=== PATIENT | male | born 1955 | race Caucasian/White ===

== ENCOUNTER 2023-02-20 11:41 | Emergency (ER) | payer MEDICARE, OTHER, SELFPAY ==
[2023-02-20 11:55] VITALS: BP 120/75; PULSE 60; RESP 14; TEMP 36.6; O2SAT 97; BMI 24.4
--- NOTE | 2023-02-20 12:48 | ED.GENADULT ---
HPI - General Adult General Chief complaint: Cough Stated complaint: Covid+, cough, slight chest pain Time Seen by Provider: 02/20/23 12:03 History of Present Illness HPI narrative: This 67-year-old male called in to clinic and was told to come here. He is reporting some cough and mild congestion. He was positive for COVID at the end of last month and did finish a course of Paxil of it. His symptoms completely resolved until a couple days ago when he began to have cough and some nasal congestion. He does not report any fevers or shortness of breath. He arrives here with normal vital signs. Related Data Home Medications Medication Instructions Recorded Confirmed fluticasone propionate 50 1 spray intranasal DAILY 02/20/23 02/20/23 mcg/actuation nasal spray,suspension levothyroxine 88 mcg tablet 88 mcg PO DAILY 02/20/23 02/20/23 Previous Rx's Medication Instructions Recorded methylprednisolone 4 mg tablets in See Rx Instructions PO .COMPLEX 02/20/23 a dose pack (Sr.Pago (Bakari)) #21 ea Allergies Allergy/AdvReac Type Severity Reaction Status Date / Time atorvastatin [From Lipitor] Allergy Unknown Weakness Verified 02/20/23 11:54 Review of Systems Status of ROS: Reports: 10 or more systems reviewed and unremarkable except as noted in History and below Narrative: Constitutional: No fevers, no weight gain or loss. Eyes: No discharge. No vision changes. HENT: No sore throat, no ear pain. Some nasal congestion. Cardiovascular: No chest pain, no palpitations. Respiratory: No shortness of breath, no wheezes. Nonproductive cough. Gastrointestinal: No abdominal pain, no vomiting, no diarrhea. Genitourinary: No dysuria, no hematuria. Musculoskeletal: Normal range of motion. Skin: No rashes, no pruritis. Neurological: No dizziness, weakness, sensory change, speech change. Endo/Heme/Allergies: No bruising or bleeding. No polydipsia. Pysch: no suicidality, no anxiety, no insomnia. All other systems reviewed and are negative. Exam Narrative: Exam Narrative: Constitutional: Well-developed, well-nourished, no acute distress. HEENT: Normocephalic, atraumatic. Neck: Normal range of motion. Nontender. Supple. Heart: Regular. No murmurs. Normal rate. Intact distal pulses. Lungs: Clear to auscultation. No chest discomfort. No wheezes, rhonchi, or rales. Abdomen: Normal bowel sounds. Nontender. No rebound tenderness. Genitalia: Deferred. Back: No midline tenderness. Normal range of motion. Extremities: Normal range of motion. No injury. Skin: Intact. No rash. Warm. No erythema or pallor. Neurologic: No altered sensation. No weakness. Alert and oriented. Psychiatric: No suicidality. No anxiety or depression. No insomnia. Nursing notes and vitals signs are reviewed. Const: Vital Signs, click to edit/add: Vital Signs - 24 hr 02/20/23 11:55 Temperature 97.9 F Pulse Rate [Pulse Oximeter] 60 Respiratory Rate 14 Blood Pressure [Le ft Upper Arm] 120/75 Pulse Oximetry 97 Oxygen Delivery Me thod Room Air Course Vital Signs Vital signs: Initial Vital Signs Temperature 97.9 F 02/20/23 11:55 Temperature Source Temporal Artery Scan 02/20/23 11:55 Pulse Rate 60 02/20/23 11:55 Pulse Rhythm Regular 02/20/23 11:55 Respiratory Rate 14 02/20/23 11:55 Blood Pressure 120/75 02/20/23 11:55 Blood Pressure Mean 90 02/20/23 11:55 Blood Pressure Position Sitting 02/20/23 11:55 Pulse Oximetry 97 02/20/23 11:55 Oxygen Delivery Method Room Air 02/20/23 11:55 Vital Signs Temperature 97.9 F 02/20/23 11:55 Pulse Rate 60 02/20/23 11:55 Respiratory Rate 14 02/20/23 11:55 Blood Pressure 120/75 02/20/23 11:55 Pulse Oximetry 97 02/20/23 11:55 Oxygen Delivery Method Room Air 02/20/23 11:55 Temperature 97.9 F 02/20/23 11:55 Pulse Rate 60 02/20/23 11:55 Respiratory Rate 14 02/20/23 11:55 Blood Pressure 120/75 02/20/23 11:55 Pulse Oximetry 97 02/20/23 11:55 Oxygen Delivery Method Room Air 02/20/23 11:55 Medical Decision Making MDM Narrative Medical decision making narrative: This patient comes in with nonproductive cough and mild nasal congestion. He arrives with normal vital signs and does not have significant complaints of bothersome symptoms. He comes in because he was instructed by the clinic to come here for evaluation. On exam his lungs sound clear. He is not using any accessory muscles for breathing and has normal oximetry and heart rate. I did discuss role of x-ray but this was declined in a process of shared decision making. The patient does have a positive COVID test once again. He did receive a prescription for Medrol Dosepak and I encouraged him to use [id number]-[id number] medicines also as needed and directed. Discharge Plan Discharge Clinical Impression: COVID-19 Patient Disposition: Home, Self-Care Condition: Stable Additional Instructions: Take medication as prescribed. Use [id number] medicines also as needed and directed. Follow up with MD return if worsening. Prescriptions: New methylprednisolone [Medrol (Bakari)] 4 mg tablets,dose pack See Rx Instructions .ROUTE .COMPLEX Qty: 21 0RF Rx Instructions: orally per package directions No Action levothyroxine 88 mcg tablet 88 mcg PO DAILY fluticasone propionate 50 mcg/actuation spray,suspension 1 spray INTRANASAL DAILY Follow Up/Referrals: Oli Zepeda MD [Primary Care Provider] - Stand Alone Forms: [employer] Info Instructions
[2023-02-20 13:14] VITALS: BP 120/75; PULSE 60; RESP 14; TEMP 36.6
== END 2023-02-20 13:04 | disposition home or self-care (01) ==
PROVIDERS: Emergency Provider Emergency Medicine Emergency Medical Services; PCP Surgery
DX: U07.1 COVID-19 (principal)
CPT/HCPCS: 99283; 99284

== ENCOUNTER 2024-08-26 17:13 | Emergency (ER) | payer MEDICARE, OTHER, SELFPAY ==
--- OUTSIDE RECORDS SUMMARY | 2024-08-26 17:15 | XMS_ITS | Clinical Summary ---
Author Organization [facility] Address [address] [place] [id number] Care Team Providers Care Video Systems Engineer Name Role Phone Oli Zepeda MD Primary Care Provider [phone] Allergies Active Allergy Reactions Criticality Noted Date Comments Rosuvastatin Muscle Weakness 12/10/2020 Medications cholecalciferol , vitamin D3, (VITAMIN D3) 100 mcg (4,000 unit) cap 02/28/2020 Active [id number] -Fish Oil 1,000 mg (120 mg-180 mg) cap Take 2 Capsules (2,000 mg) by mouth. 0 12/10/2020 Active fluticasone (50 mcg per actuation) nasal solution (FLONASE)Indica tions:Chronic cough INHALE 1 SPRAY INTO BOTH NOSTRILS ONCE DAILY 48 g 2 08/30/2023 Active levothyroxine (SYNTHROID) 88 mcg tabletIndicatio ns:Hypothyroidi sm (acquired) Take 1 Tablet (88 mcg) by mouth once daily. 90 Tablet 3 05/01/2024 Active Active Problems Problem Noted Date Diagnosed Date Hypothyroidism (acquired) 02/07/2023 Encounters Date Type Department Care Team Description 08/26/2024 Nurse Triage [facility] [address] [place] [address] Oli Zepeda MD Dog Bite 08/26/2024 Nurse Triage [facility] [address] [place] [address] Oli Zepeda MD from Last 3 Months Immunizations Immunization Administration Dates Next Due COVID-19 VACCINE SPIKEVAX (M ODERNA 50MCG/0.5ML) 12YO+ PFS 07/27/2023 COVID-19 vaccine (Moderna 10 0mcg/0.5mL) PF, MDV 03/11/2021,05/28/2020 Influenza Virus, Unspecified 03/18/2008 Influenza, High-dose Inactivated 02/19/2024 Influenza, High-dose Quadriv alent Inactivated 02/07/2021 Influenza, IIV3 (Age 6-35 mos) 03/01/2015 Influenza, IIV3 (Age >=3 years) 02/03/2014 Influenza, IIV4 02/25/2019,02/26/2018,02/21/2016 Influenza, Inactivated AIIV4 (Age 65+ Years) Preserv Free 03/12/2023,03/07/2022 Influenza, Inactivated IIV3 (Age 65+ Years) Preserv Free 01/22/2020 Influenza,CCIIV4 PRESERV FREE 02/12/2017 Pneumococcal Poly,23-Valent (Pneumovax) 12/11/19 21 Pneumococcal conj 13-Valent (Prevnar 13) 019 Tdap 03/03/2019 Tuberculin (PPD) 06/28/2012,06/10/2012 Zoster (Shingrix-RZV, recombinant) 09/16/2018, Zoster (Zostavax-ZVL, live) 05/01/2014 Family History Medical History Relation Name Comments Cancer Father Unknown primary Heart attack Maternal Grandfather Cancer-breast Mother Heart attack Paternal Grandfather Diabetes Paternal Grandmother Relation Name Status Comments Father Maternal Grandfather Mother Paternal Grandfather Paternal Grandmother Social History Tobacco Use Types Packs/Day Years Used Date Smoking Tobacco: Never Smokeless Tobacco: Never Tobacco Cessation:Counseling Given: Yes Alcohol Use Standard Drinks/Week Comments Not Currently 0 (1 standard drink = 0.6 oz pur e alcohol) PHQ-2 Answer Date Recorded PHQ-2 TOTAL SCORE 0 05/01/2024 Social Connections Answer Date Recorded Do you often feel lonely or isolated from those around you? 0 04/26/2024 Financial Resource Strain Answer Date R ecorded Difficulty of Paying Living Expenses 3 04/26/2024 Difficulty of Paying Living Expenses Not on file 04/26/2024 Food Insecurity Answer Date Recorded Do you worry your food will run out before you are able to buy more? 1 04/26/2024 Transportation Needs Answer Date Record ed Does lack of transportation keep you from medica l appointments? 1 04/26/2024 Does lack of transportation keep you from work, meetings or getting things that you need? 1 04/26/2024 Housing Stability Answer Date Recorded What is your housing situation today? 1 04/26/2024 Utilities Answer Date Recorded Do you have trouble paying f or utilities (for example, heat, electricity, water, phone)? 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 Not on file Not on file Obstetrics History Last Filed Vital Signs Vital Sign Reading Time Taken Comments Blood Pressure 143/90 05/01/2024 11:14 AM PSYCHIATRIC TECHNICIAN Pulse 63 05/01/2024 11:14 AM PSYCHIATRIC TECHNICIAN Temperature 36.4 C (97.6 F) 03/28/2022 9:23 AM PSYCHIATRIC TECHNICIAN Respiratory Rate 20 12/20/2020 2:59 PM CDT Oxygen Saturation 100% 05/01/2024 11:14 AM PSYCHIATRIC TECHNICIAN Inhaled Oxygen Concentration - - Weight 79.5 kg (175 lb 5 oz) 05/01/2024 11:14 AM PSYCHIATRIC TECHNICIAN Height 177 cm (5' 9.69) 05/01/2024 11:14 AM PSYCHIATRIC TECHNICIAN Body Mass Index 25.38 05/01/2024 11:14 AM PSYCHIATRIC TECHNICIAN Plan of Treatment Health Maintenance Due Date Last Done Comments COVID-19 vaccine series ( season) 2024 02/13/2024, 07/27/2023, 01/28/2022, Additional history exists BMI (ht and wt on same day) for age 18+ 05/01/2025 05/01/2024, 04/10/2023, 03/28/2022, Additional history exists Depression screening for age 12+ 05/01/2025 05/01/2024, 04/10/2023, 03/28/2022, Additional history exists Medicare Wellness for age 65+ 05/02/2025, 04/10/2023, 03/28/2022, Additional history exists Fecal testing sDNA-FIT ([address] guard) for age 45-75 05/03/2027 05/03/2024, 03/08/2021, 03/08/2021 RSV vaccine for adults or (1 - 1-dose 75+ series) 2028 Tetanus booster 03/03/2029 03/03/2019 Lipids for age 45-75 05/01/2029 05/01/2024, 04/10/2023, 03/28/2022, Additional history exists Zoster (shingles) series for age 50+ Completed 09/16/2018, 06/24/2018, 05/01/2014 Tdap Completed 03/03/2019 Pneumococcal series for age 50+ Completed , 03/03/2019 Hepatitis C screening for ag e 18-79 Completed 01/07/2021, 02/27/2020 Influenza Vaccine Completed 02/19/2024, , 03/07/2022, Additional history exists Procedures Procedure Name Priority Date/Time Associated Diagnosis Comments SDNA-FIT EXTERNAL (COLOGUARD) Routine 05/03/2024 1:15 PM PSYCHIATRIC TECHNICIAN Screening for colorectal cancer LIPID PANEL Routine 05/01/2024 11:53 AM PSYCHIATRIC TECHNICIAN Hyperlipidemia, unspecified hyperlipidemia type ANTI HCV Routine 01/07/2021 8:11 AM CDT Elevated liver enzymes from Last 3 Months or Most Recently Relevant to Health Maintenance Results * SDNA-FIT EXTERNAL (COLOGUARD) [[id number]] (05/03/2024 1:15 PM PSYCHIATRIC TECHNICIAN) NONINV COLON CA DNA+OCC BLD SCRN STL-IMP Negative Negative 05/10/2024 8:54 AM PSYCHIATRIC TECHNICIAN [facility] (CLIA #:[id number]) Comment: NEGATIVE TEST RESULT. A negative Cologuard result indicates a low likelihood that a colorectal cancer (CRC) or advanced adenoma (adenomatous polyps with more advanced pre-malignant features) is present. The chance that a person with a negative Cologuard test has a colorectal cancer is less than 1 in 1500 (negative predictive value >99.9%) or has an advanced adenoma is less than 5.3% (negative predictive value 94.7%). These data are based on a prospective cross-sectional study of 10,000 individuals at average risk for colorectal cancer who were screened with both Cologuard and colonoscopy. (Itzel Irving al, N Engl J Med 2014;370(14):9799-1141) The normal value (reference range) for this assay is negative. COLOGUARD RE-SCREENING RECOMMENDATION: Periodic colorectal cancer screening is an important part of preventive healthcare for asymptomatic individuals at average risk for colorectal cancer. Following a negative Cologuard result, the [place] Cancer Society and U.S. Multi-Society Task Force screening guidelines recommend a Cologuard re-screening interval of 3 years. References: [employer] Cancer Society Guideline for Colorectal Cancer Screening: https://www.cancer.org/cancer/cydzj-sgekts-hzhvla/upycqpodc-swwxrhaay-iyukssr/ac s-rec ommendations.html.; James WAGGONER, Daron AMAYA, Bull GilesK, Colorectal Cancer Screening: Recommendations for Physicians and Patients from the U.S. Multi-Society Task Force on Colorectal Cancer Screening , Am J Gastroenterology 2017; 112:1758-3425. TEST DESCRIPTION: Composite algorithmic analysis of stool DNA-biomarkers with hemoglobin immunoassay. Quantitative values of individual biomarkers are not reportable and are not associated with individual biomarker result reference ranges. Cologuard is intended for colorectal cancer screening of adults of either sex, 45 years or older, who are at average-risk for colorectal cancer (CRC). Cologuard has been approved for use by the U.S. FDA. The performance of Cologuard was established in a cross sectional study of average-risk adults aged 50-84. Cologuard performance in patients ages 45 to 49 years was estimated by sub-group analysis of near-age groups. Colonoscopies performed for a positive result may find as the most clinically significant lesion: colorectal cancer [4.0%], advanced adenoma (including sessile serrated polyps greater than or equal to 1cm diameter) [20%] or non- advanced adenoma [31%]; or no colorectal neoplasia [45%]. These estimates are derived from a prospective cross-sectional screening study of 10,000 individuals at average risk for colorectal cancer who were screened with both Cologuard and colonoscopy. (Itzel Simms et al, N Engl J Med 2014;370(14):8954-5133.) Cologuard may produce a false negative or false positive result (no colorectal cancer or precancerous polyp present at colonoscopy follow up). A negative Cologuard test result does not guarantee the absence of CRC or advanced adenoma (pre-cancer). The current Cologuard screening interval is every 3 years. (Japanese Cancer Society and U.S. Multi-Society Task Force). Cologuard performance data in a 10,000 patient pivotal study using colonoscopy as the reference method can be accessed at the following location: www.[employer]/results. Additional description of the Cologuard test process, warnings and precautions can be found at www.[employer].Retrace. Stool specimen (specimen) (Rectum) 05/03/2024 1:15 PM PSYCHIATRIC TECHNICIAN 05/06/2024 8:54 AM PSYCHIATRIC TECHNICIAN us Oli Zepeda MD URINE Final Resu lt [facility] (CLIA #:[id number]) [address] [place] [address], * (ABNORMAL) LIPID PANEL (05/01/2024 11:53 AM PSYCHIATRIC TECHNICIAN) CHOLESTEROL, TOTAL 184 <200 mg/dL [facility] HDL CHOLESTEROL 54 > OR = 40 mg/dL [facility] TRIGLYCERIDES 80 <150 mg/dL [facility] LDL-CHOLESTEROL 113(H) mg/dL (calc) [facility] Comment: Reference range: <100 Desirable range <100 mg/dL for primary prevention; <70 mg/dL for patients with CHD or diabetic patients with > or = 2 CHD risk factors. LDL-C is now calculated using the Michelle calculation, which is a validated novel method providing better accuracy than the Friedewald equation in the estimation of LDL-C. Kane FARLEY et al. ARJUN. 2013;310(19): 9008-7072 (http://education.[employer].Retrace/faq/LVG923) CHOL/HDLC RATIO 3.4 <5.0 (calc) [facility] NON HDL CHOLESTEROL 130(H) <130 mg/dL (calc) [facility] Comment: For patients with diabetes plus 1 major ASCVD risk factor, treating to a non-HDL-C goal of <100 mg/dL (LDL-C of <70 mg/dL) is considered a therapeutic option. Blood BLOOD SPECIMEN / Unknown 05/01/2024 11:53 AM PSYCHIATRIC TECHNICIAN 05/01/2024 11:54 AM PSYCHIATRIC TECHNICIAN lOi Zepeda MD CHEMISTRY Final Resu lt Performing Organization Address [facility] Co de Phone Number [employer] [facility] [address] [place] [address], [address]cast.[email or web address] [address] * ANTI HCV (01/07/2021 8:11 AM CDT) HEPATITIS C ANTIBODY Non-React glenn Non-React glenn 01/07/2021 5:40 PM CDT [facility] Comment:Antibodies to HCV no t detected; does not exclude the possibility of exposure to HCV. Blood BLOOD SPECIMEN / Unknown Venipuncture / Unknown 01/07/2021 8:11 AM CDT 01/07/2021 8:11 AM CDT Oli Zepeda MD SEND OUTS [facility] [address] [place] [address], [place] from Last 3 Months or Most Recently Relevant to Health Maintenance Insurance [employer] [place] ONLY Advance Directives Documents on File Type Date Recorded Patient Non Profit Job Titles Expl anation Healthcare Directive 01/08/2017 017 Care Teams Video Systems Engineer Relationship Specialty Start Date End Date Oli Zepeda MD [address] [place] [address] PCP - General Family Practice 03/03/19
[2024-08-26 17:21] VITALS: BP 158/91; PULSE 86; RESP 16; TEMP 36.3; O2SAT 98; BMI 24.2
--- NOTE | 2024-08-26 17:21 | ED_ITS ---
HPI - Animal Bite General Time Seen by Provider: 17:21 Date Seen: 08/26/24 Chief Complaint: Animal Bite Stated Complaint: dog bite R arm Time Seen by Provider: 08/26/24 17:20 Source: patient Mode of arrival: ambulatory Limitations: no limitations History of Present Illness HPI narrative: 68-year-old male who presents today after a dog bite. Patient was out and a known dog bit his arm. He had a coat on along with three shirts and noted an abrasion on his right forearm so came to the emergency department. Tetanus is up-to-date. Related Data Home Medications ?Medication ?Instructions ?Recorded ?Confirmed fluticasone propionate 50 1 spray intranasal DAILY 02/20/23 08/26/24 mcg/actuation nasal spray,suspension levothyroxine 88 mcg tablet 88 mcg PO DAILY 02/20/23 08/26/24 Allergies Allergy/AdvReac Type Severity Reaction Status Date / Time atorvastatin (From Lipitor) Allergy Unknown Weakness Verified 08/26/24 17:19 PFSH PFSH Social History Smoking Status: Never smoker Non-prescribed substance use: denies use Exam Narrative: Exam Narrative: General: well nourished , NAD Head: Atraumatic and normocephalic ENT: External ears and external nose are normal Eyes: Conjunctiva clear, pupils are equal reactive, external ocular motions are intact Neck: Full spontaneous range of motion of the neck Lungs: No respiratory distress Musculoskeletal: No tenderness or deformity Neurologic: No gross focal neurologic deficits Skin: Right extensor forearm 1 cm superficial skin tear /abrasion. I did examine patient's coat and overlying sugars, there are no puncture wounds or damage to any of these layers Psych: Mood and affect are appropriate Const: Vital Signs, click to edit/add: Vital Signs - 24 hr 08/26/24 17:21 Temperature 97.3 F L Pulse Rate [Pulse Oximeter] 86 Respiratory Rate 16 Blood Pressure [Ri ght Upper Arm] 158/91 H Pulse Oximetry 98 Oxygen Delivery Me thod Room Air Course Course ED Course: Patient seen and examined, presents today with right forearm injury after dog bite. The dog bite was through multiple layers of clothing, none of which demonstrate any evidence of damage. The appearance of this is of a skin tear or avulsion, not of a puncture wound. I do not suspect that the dog's tooth penetrated through the layers of clothing, rather this appears to be a superficial avulsion. We discussed rabies series which at this point I do not think is indicated. Additionally, no antibiotics indicated. We discussed wound care in stable for discharge. Vital Signs Vital signs: Initial Vital Signs Temperature 97.3 F L 08/26/24 17:21 Temperature Source Temporal Artery Scan 08/26/24 17:21 Pulse Rate 86 08/26/24 17:21 Respiratory Rate 16 08/26/24 17:21 Blood Pressure 158/91 H 08/26/24 17:21 Blood Pressure Mean 113 H 08/26/24 17:21 Pulse Oximetry 98 08/26/24 17:21 Oxygen Delivery Method Room Air 08/26/24 17:21 Vital Signs Temperature 97.3 F L 08/26/24 17:21 Pulse Rate 86 08/26/24 17:21 Respiratory Rate 16 08/26/24 17:21 Blood Pressure 158/91 H 08/26/24 17:21 Pulse Oximetry 98 08/26/24 17:21 Oxygen Delivery Method Room Air 08/26/24 17:21 Temperature 97.3 F L 08/26/24 17:21 Pulse Rate 86 08/26/24 17:21 Respiratory Rate 16 08/26/24 17:21 Blood Pressure 158/91 H 08/26/24 17:21 Pulse Oximetry 98 08/26/24 17:21 Oxygen Delivery Method Room Air 08/26/24 17:21 Discharge Plan Discharge Clinical Impression: Skin tear Patient Disposition: Home, Self-Care Condition: Stable Additional Instructions: Wash the area gently daily with soap and water, apply dressing for comfort. You may apply antibiotic ointment daily as well. Apply cool packs for pain or swelling Activity Level: No Restrictions Discharge Diet: Regular Prescriptions: No Action levothyroxine 88 mcg tablet 88 mcg PO DAILY fluticasone propionate 50 mcg/actuation spray,suspension 1 spray INTRANASAL DAILY Follow Up/Referrals: Oli Zepeda MD [Primary Care Provider] - Stand Alone Forms: [employer] Info Instructions
--- OUTSIDE RECORDS SUMMARY | 2024-08-26 17:49 | XMS_ITS | Clinical Summary ---
Author Organization [facility] Address [address] [place] [id number] Care Team Providers Care Industrial Workers Name Role Phone Oli Zepeda MD Primary Care Provider [phone] Allergies Active Allergy Reactions Criticality Noted Date Comments Rosuvastatin Muscle Weakness 12/10/2020 Medications cholecalciferol , vitamin D3, (VITAMIN D3) 100 mcg (4,000 unit) cap 02/28/2020 Active [id number] -Fish Oil 1,000 mg (120 mg-180 mg) [...] Department Care Team Description 08/26/2024 Nurse Triage [facility] [address] [place] [address] Oli Zepeda MD Dog Bite 08/26/2024 Nurse Triage [facility] [address] [place] [address] Oli Zepeda MD from Last 3 Months [...] PM CDT Legal Sex Male 6:06 AM [employer] DEVEL[employer] Gender Identity Male 02/26/2020 7:56 PM CDT Sexual Orientation Straight 02/26/2020 7: 56 PM CDT 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 Not on file Not on file Obstetrics History Last Filed Vital Signs Vital Sign Reading Time Taken Comments Blood Pressure 143/90 05/01/2024 11:14 AM [employer]EL[employer] Pulse 63 05/01/2024 11:14 AM [employer] Temperature 36.4 C (97.6 F) 03/28/2022 9:23 AM [employer] DEVELOPER Respiratory Rate 20 12/20/2020 2:59 PM CDT Oxygen Saturation 100% 05/01/2024 11:14 AM [employer]ELOPER Inhaled Oxygen Concentration - - Weight 79.5 kg (175 lb 5 oz) 05/01/2024 11:14 AM [employer]EL[employer] Height 177 cm (5' 9.69) 05/01/2024 11:14 AM [employer]EL[employer] Body Mass Index 25.38 05/01/2024 11:14 AM [employer] DEVELOPER Plan of Treatment Health Maintenance Due Date [...] 03/28/2022, Additional history exists Fecal testing sDNA-FIT ([place] guard) for age 45-75 05/03/2027 05/03/2024, 03/08/2021, [...] SDNA-FIT EXTERNAL (COLOGUARD) Routine 05/03/2024 1:15 PM [employer] DEVEL[employer] Screening for colorectal cancer LIPID PANEL Routine 05/01/2024 11:53 AM [employer] DEVELOPER Hyperlipidemia, unspecified hyperlipidemia type ANTI HCV Routine 01/07/2021 8:11 AM CDT Elevated liver enzymes from Last 3 Months or Most Recently Relevant to Health Maintenance Results * SDNA-FIT EXTERNAL (COLOGUARD) [[id number]] (05/03/2024 1:15 PM [employer] DEVELOPER) NONINV COLON CA DNA+OCC BLD SCRN STL-IMP Negative Negative 05/10/2024 8:54 AM [employer] NET DEVELOPER [facility] (CLIA #:[id number]) Comment: NEGATIVE TEST RESULT. A negative Cologuard [...] (Itzel Irving al, N Engl J Med 2014;370(14):3508-6577) The normal value (reference range) for this assay is negative. COLOGUARD RE-SCREENING RECOMMENDATION: Periodic colorectal cancer screening is an important part of preventive healthcare for asymptomatic individuals at average risk for colorectal cancer. Following a negative Cologuard result, the [place] [employer] Society and U.S. Multi-Society Task Force screening guidelines recommend a Cologuard re-screening interval of 3 years. References: [place] [employer] Guideline for Colorectal Cancer Screening: https://www.cancer.org/cancer/ryvuk-hqvnxr-xrgibz/vomgbbpuw-zkxgqayqt-decattn/ac s-rec ommendations.html.; James WAGGONER, Daron AMAYA, Bull GilesK, Colorectal Cancer Screening: Recommendations for Physicians and Patients from the U.S. Multi-Society Task Force on Colorectal Cancer Screening , Am J Gastroenterology 2017; 112:6018-9624. TEST DESCRIPTION: Composite algorithmic analysis of stool [...] Simms et al, N Engl J Med 2014;370(14):6594-5933.) Cologuard may produce a false negative or false positive result (no colorectal cancer or precancerous polyp present at colonoscopy follow up). A negative Cologuard test result does not guarantee the absence of CRC or advanced adenoma (pre-cancer). The current Cologuard screening interval is every 3 years. ([place] [employer] Society and U.S. Multi-Society Task Force). Cologuard performance data in a 10,000 patient pivotal study using colonoscopy as the reference method can be accessed at the following location: www.[employer]/results. Additional description of the Cologuard test process, warnings and precautions can be found at www.[employer]. Stool specimen (specimen) (Rectum) 05/03/2024 1:15 PM ASP NET DEVELOPER 05/06/2024 8:54 AM ASP NET DEVELOPER us Oli Zepeda MD URINE Final Resu lt [facility] (CLIA #:[id number]) [address] [place] [address], * (ABNORMAL) LIPID PANEL (05/01/2024 11:53 AM [employer] NET DEVELOPER) CHOLESTEROL, TOTAL 184 <200 mg/dL [facility] [...] LDL-C. Kane FARLEY et al. ARJUN. 2013;310(19): 7456-5785 (http://education.[employer]/faq/QGT174) CHOL/HDLC RATIO 3.4 <5.0 (calc) [facility] Dex NON HDL CHOLESTEROL 130(H) <130 mg/dL (calc) [facility] Comment: For patients with diabetes plus 1 major ASCVD risk factor, treating to a non-HDL-C goal of <100 mg/dL (LDL-C of <70 mg/dL) is considered a therapeutic option. Blood BLOOD SPECIMEN / Unknown 05/01/2024 11:53 AM [employer] NET DEVELOPER 05/01/2024 11:54 AM [employer] NET DEVELOPER Oli Zepeda MD CHEMISTRY Final Resu lt Performing Organization Address [facility] Co de Phone Number [employer] [facility] [address] [place] [address], [employer] [address] * ANTI HCV (01/07/2021 8:11 AM CDT) HEPATITIS C ANTIBODY Non-React glenn Non-React glenn 01/07/2021 5:40 PM CDT [facility] Comment:Antibodies to HCV no t detected; does not exclude the possibility of exposure to HCV. Blood BLOOD SPECIMEN / Unknown Venipuncture / Unknown 01/07/2021 8:11 AM CDT 01/07/2021 8:11 AM CDT Oli Zepeda MD SEND OUTS Final Resu lt [facility] [address] [place] [address], [place] from Last 3 Months or Most Recently Relevant to Health Maintenance Insurance [employer] [place] ONLY Advance Directives Documents on File Type Date Recorded Patient Health And Human Performance Professor Expl anation Healthcare Directive 01/08/2017 017 Care Teams Industrial Workers Relationship Specialty Start Date End Date Oli Zepeda MD [address] [place] [address] PCP - General Family Practice 03/03/19
== END 2024-08-26 17:50 | disposition home or self-care (01) ==
LOC: ED 17:47
PROVIDERS: Emergency Provider Family Medicine; PCP Surgery
DX: S50.871A Other superficial bite of right forearm, initial encounter (principal); W54.0XXA Bitten by dog, initial encounter
CPT/HCPCS: 99282; 99283